=== PATIENT | male | born 1945 | race Caucasian/White ===

== ENCOUNTER 2021-10-27 05:37 | Outpatient (CLI) | payer OTHER ==
[~2021-10-27] VITALS: Ht 183 cm; Wt 93.0 kg
[2021-10-29] MEDS ORDERED: GLIP10TA13 PO (09:40)
[2021-10-29] MEDS ORDERED: CALC-774 PO (09:40)
[2021-10-29] MEDS ORDERED: FINA5TAB6 PO (09:40)
[2021-10-29] MEDS ORDERED: FLUT15.845 NS (09:40)
[2021-10-29] MEDS ORDERED: OMEP20CA18 PO (09:40)
[2021-10-29] MEDS ORDERED: TERA10CA3 PO (09:40)
[2021-10-29] MEDS ORDERED: MOME13HF3 IH (09:40)
[2021-10-29] MEDS ORDERED: PRED5TAB56 PO (09:40)
[2021-10-29] MEDS ORDERED: METF750T45 PO (09:40)
[2021-10-29] MEDS ORDERED: MULT-593 PO (09:40)
[2021-10-29] MEDS ORDERED: LACT1CAP62 PO (09:40)
[2021-10-29] MEDS ORDERED: ALOG25TA2 PO (09:40)
[2021-10-29] MEDS ORDERED: L. A1TAB10 PO (09:40)
[2021-10-29] MEDS ORDERED: FLEC100T PO (09:40)
[2021-10-29] MEDS ORDERED: APIX5TAB PO (09:40)
[2021-10-29] MEDS ORDERED: CETI10TA17 PO (09:40)
== END 2021-10-29 09:47 | disposition home or self-care (01) ==
LOC: PREOP 05:37
PROVIDERS: ATTEND Surgery
DX: Z01.818 Encounter for other preprocedural examination (principal)

== ENCOUNTER 2021-11-09 06:43 | Day surgery (SDC) | payer OTHER ==
[~2021-11-09] VITALS: Ht 183 cm; Wt 93.0 kg
[~2021-11-09 06:43] MED LIST: ALOG25TA2 PO; APIX5TAB PO; CALC-774 PO; CETI10TA17 PO; FINA5TAB6 PO; FLEC100T PO; FLUT15.845 NS; GLIP10TA13 PO; L. A1TAB10 PO; LACT1CAP62 PO; METF750T45 PO; MOME13HF3 IH; MULT-593 PO; OMEP20CA18 PO; PRED5TAB56 PO; TERA10CA3 PO
[2021-11-09] MEDS ORDERED: LACTATED RINGERS 1,000 ML IV STA (06:53)
[2021-11-09 07:06] VITALS: BP 145/80
[2021-11-09] MEDS ORDERED: PROPOFOL INJECTION 50 ML IV ONE (07:25)
[2021-11-09 08:15] VITALS: BP 128/73
--- NOTE | 2021-11-09 08:17 | Anesthesia-General Post-Op ---
MAC Patient Condition Mental Status/LOC: Same as Preop Cardiovascular: Satisfactory Nausea/Vomiting: Absent Respiratory: Satisfactory Pain: Controlled Complications: Absent Post Op Complications Complications None Follow Up Care/Instructions Patient Instructions None needed. Anesthesiology Discharge Order Discharge Order Patient is doing well, no complaints, stable vital signs, no apparent adverse anesthesia problems. No complications reported per nursing. KENYATTA BENNETT CRNA Nov 09, 2021 08:17
[2021-11-09 08:20] VITALS: BP 131/76
--- NOTE | 2021-11-09 08:26 | Progress Note-Post Operative ---
Post-Operative Progess Note Surgeon (s)/Manager Operational (s) Surgeon REBECCA KIRK DO Manager Operational: na Pre-Operative Diagnosis hx polyps Post-Operative Diagnosis colon polyps Procedure & Operative Findings Date of Procedure 11/09/21 Procedure Performed/Findings colonoscopy c hot bx polypectomy x 2 Anesthesia Type per cheesemaker Estimated Blood Loss Estimated blood loss (mL): none Specimens/Packing Specimens Removed colon polyps REBECCA KIRK DO Nov 09, 2021 08:26
--- NOTE | 2021-11-09 08:28 | Discharge Inst-Simple/Standard ---
Discharge Inst-Standard Patient Instructions/Follow Up Plan of Care/Instructions/FU: 2 weeks Teodoro Activity as Tolerated: Yes Discharge Diet: Regular Diet REBECCA KIRK DO Nov 09, 2021 08:28
[2021-11-09 08:40] VITALS: BP 135/87
[2021-11-09 08:45] VITALS: BP 135/87
--- NOTE | 2021-11-09 13:20 | OPERATIVE REPORT ---
DATE OF SERVICE: 11/09/2021 PREOPERATIVE DIAGNOSIS: History of colon polyps. POSTOPERATIVE DIAGNOSIS: Colon polyps. PROCEDURES PERFORMED: Colonoscopy with hot biopsy polypectomy x2. SURGEON: Rebecca Valerio DO ANESTHESIA: Per OBSTETRICAL NURSE. ESTIMATED BLOOD LOSS: None. COMPLICATIONS: None. INDICATIONS FOR PROCEDURE: The patient is a 76-year-old male with history of polyps. He understands risks and benefits of procedure and wishes to proceed. Consent was signed in the chart. DESCRIPTION OF PROCEDURE: The patient was taken to endoscopy suite and placed in a left lateral recumbent position. Timeout was performed. Digital rectal exam was performed. No palpable polyps, masses or ulcerations. Scope was inserted in the rectum and advanced all the way to cecum with minimal difficulty. Prep was adequate. Scope was slowly retracted back. No polyps, masses or ulcerations in the cecum, ascending colon. In the transverse colon, a small polyp was present, which hot biopsy polypectomy was performed. Scope was then continuously and slowly retracted back into the descending colon, another small polyp was present, which hot biopsy polypectomy was performed. Scope was then continuously and slowly retracted back. No polyps, masses or ulcerations within the remainder of the descending and sigmoid colon. Once in the rectum, scope was retroflexed noting no other pathology. Scope was returned to its normal position, slowly withdrawn until completely removed. The patient tolerated procedure well without any complications and taken to the recovery room in stable condition. RECOMMENDATIONS: The patient will need repeat colonoscopy on as needed basis due to age. If any issues, be seen at that time. The patient will follow up on pathology in two weeks. Job ID: [id number] DocumentID: [id number] Dictated Date: 11/09/2021 08:29:58 Financial Economist Date: 11/09/2021 13:19:54 Dictated By: REBECCA VALERIO DO
== END 2021-11-09 09:15 | disposition home or self-care (01) ==
LOC: ENDO 06:43
PROVIDERS: ATTEND Surgery
DX: Z12.11 Encounter for screening for malignant neoplasm of colon (principal); D12.3 Benign neoplasm of transverse colon; D12.4 Benign neoplasm of descending colon; G47.33 Obstructive sleep apnea (adult) (pediatric); Z79.01 Long term (current) use of anticoagulants; Z79.52 Long term (current) use of systemic steroids; Z87.891 Personal history of nicotine dependence
CPT/HCPCS: 82947